=== PATIENT | female | born 1965 ===

== ENCOUNTER 2023-12-05 10:19 | Emergency (ER) | payer OTHER, MEDICARE ==
[~2023-12-05] VITALS: Ht 167.6 cm; Wt 72.6 kg
[2023-12-05] MEDS ORDERED: Morphine Sulfate 4 MG/1 ML Injection ONE ×2 (10:23→10:38)
[2023-12-05] MEDS ORDERED: Ondansetron HCl 2 MG / ML 2ML Vial ONE ×2 (10:24→10:38)
[2023-12-05] MEDS ORDERED: CeFAZolin Sodium 2,000 MG in NS 100 ML IV ONE (10:30)
[2023-12-05 10:37] LABS: BASOPHILS ABSOLUTE AUTO 0.04 K/mm3 (0.00-0.23); BASOPHILS PERCENT AUTO 0 % (0-2); EOSINOPHILS ABSOLUTE AUTO 0.22 K/mm3 (0.00-0.68); EOSINOPHILS PERCENT AUTO 2 % (0-6); Hematocrit 35.2 % (33.0-51.0); Hemoglobin 11.9 g/dL (11.5-16.0); IMMATURE GRAN ABSOLUTE AUTO 0.13 K/mm3 (0.00-0.10); IMMATURE GRAN PERCENT AUTO 1 % (0-1); LYMPHOCYTES ABSOLUTE AUTO 3.26 K/mm3 (0.84-5.20); LYMPHOCYTES PERCENT AUTO 27 % (21-46); MONOCYTES ABSOLUTE AUTO 0.64 K/mm3 (0.16-1.47); MONOCYTES PERCENT AUTO 5 % (4-13); Mean Corpuscular HGB 30.7 pg (26.0-34.0); Mean Corpuscular HGB Conc 33.8 g/dL (31.5-36.5); Mean Corpuscular Volume 91 fL (80-100); Mean Platelet Volume 10.6 fL (9.1-12.4); NEUTROPHILS ABSOLUTE AUTO 7.75 K/mm3 (1.96-9.15); NEUTROPHILS PERCENT AUTO 64 % (41-73); Platelet Count 379 K/mm3 (150-400); RDW Coefficient Variation 12.4 % (11.7-14.2); RDW Standard Deviation 40.9 fL (35.1-46.3); Red Blood Cell Count 3.88 M/mm3 (3.80-5.20); White Blood Cell Count 12.04 K/mm3 (4.00-11.30)
[2023-12-05] MEDS ORDERED: Diphth,Pertuss(Acell),Tet Vac 0.5 ML VIAL IM ONE (10:45)
[2023-12-05 10:52] LABS: Alanine Aminotransfer (ALT/SGP 121 U/L (12-78); Albumin, Blood 3.8 g/dL (3.4-5.0); Albumin/Globulin Ratio 1.1 (0.8-1.8); Alk Phos 110 U/L (50-136); Anion Gap 8 mmol/L (3-11); Aspartate Aminotrans (AST/SGOT 139 U/L (12-37); Bilirubin, Total 0.5 mg/dL (0.1-1.0); Blood Urea Nitrogen 19 mg/dL (8-24); Bun/Creatinine Ratio 22.5 (12.0-20.0); CO2, Blood 27 mmol/L (21-32); Calcium, Blood 9.5 mg/dL (8.5-10.1); Chloride, Blood 107 mmol/L (98-108); Creatinine, Blood 0.84 mg/dL (0.40-1.00); Ethanol (Alcohol), Blood, Med <3 mg/dL; Globulin, Blood 3.4 g/dL (2.2-4.0); Glomerular Filtration Rate 82 (60-); Glucose, Blood 188 mg/dL (70-99); Potassium, Blood 3.4 mmol/L (3.5-5.5); Sodium, Blood 139 mmol/L (136-145); Total Protein, Blood 7.2 g/dL (6.4-8.2)
[2023-12-05] MEDS ORDERED: HYDROmorphone HCl/Pf 1MG SYR IV ONE (10:55)
[2023-12-05 11:32] LABS: Source, Urine Foley catheter
[2023-12-05 11:40] LABS: Appearance, Urine Clear (Clear); Bilirubin, Urine Neg (Neg); Blood, Urine 3+ (Neg); Glucose Qualitative, Urine Neg (Neg); Ketones, Urine Neg (Neg); Leukocyte Esterase, Urine Neg (Neg); Nitrite, Urine Neg (Neg); Protein, Urine Neg (Neg); Urobilinogen, Urine NORM (Normal); pH, Urine 6.5 (5.0-8.0)
[2023-12-05] MEDS ORDERED: NS 1,000 ML IV ONE (11:44)
[2023-12-05 11:49] LABS: Color, Urine Yellow (P-Yellow); White Blood Cells, Urine Not Seen /hpf (0-5)
[2023-12-05 11:50] LABS: Bacteria Not Seen /hpf; Squamous Epithelial Cells Not Seen /hpf (Few)
[2023-12-05 12:04] LABS: U Amphetamine Screen DETECTED; U Barbituate Screen Not Detected; U Benzodiazapine Screen DETECTED; U Buprenorphine Screen Not Detected; U Cannabinoids Screen DETECTED; U Cocaine Screen Not Detected; U Methadone Screen Not Detected; U Methamphetamine Screen DETECTED; U Opiates Screen DETECTED; U Oxycodone Screen Not Detected; U Phencyclidine Screen Not Detected
== END 2023-12-05 11:50 | disposition short-term general hospital (02) ==
LOC: ER 10:19
PROVIDERS: Emergency Medicine
DX: S02.411A LeFort I fracture, initial encounter for closed fracture (principal); S02.412A LeFort II fracture, initial encounter for closed fracture; S22.43XA Multiple fractures of ribs, bilateral, initial encounter for closed fracture; S12.101A Unspecified nondisplaced fracture of second cervical vertebra, initial encounter for closed fracture; S12.401A Unspecified nondisplaced fracture of fifth cervical vertebra, initial encounter for closed fracture; S72.142A Displaced intertrochanteric fracture of left femur, initial encounter for closed fracture; S32.401A Unspecified fracture of right acetabulum, initial encounter for closed fracture; S82.251A Displaced comminuted fracture of shaft of right tibia, initial encounter for closed fracture; S82.451A Displaced comminuted fracture of shaft of right fibula, initial encounter for closed fracture; S42.022A Displaced fracture of shaft of left clavicle, initial encounter for closed fracture; S27.0XXA Traumatic pneumothorax, initial encounter; J98.2 Interstitial emphysema; F19.10 Other psychoactive substance abuse, uncomplicated; V44.6XXA Car passenger injured in collision with heavy transport vehicle or bus in traffic accident, initial encounter; Y92.410 Unspecified street and highway as the place of occurrence of the external cause; Z88.5 Allergy status to narcotic agent; Z88.8 Allergy status to other drugs, medicaments and biological substances
CPT/HCPCS: 12004; 29505; 51702; 70450; 70486; 71045; 71260; 72125; 72170; 73030; 73590; 74177; 80053; 81001; 85025; 86850; 86900; 86901; 90471; 90715; 93005; 93010; 96374-59; 99285-25; J0690; J1170; J2270; J2405; J7030; Q9967